=== PATIENT | female | born 1970 | race Caucasian/White ===

== ENCOUNTER 2018-01-27 15:55 | Emergency (ER) | payer OTHER ==
[~2018-01-27] VITALS: Ht 160 cm; Wt 100.0 kg
[~2018-01-27 15:55] MED LIST: CELE50CA PO; ROBA750T PO; TYLETAB34 PO
[2018-01-27 16:17] VITALS: BP 184/82; PULSE 71; RESP 18; TEMP 98; O2SAT 97
[2018-01-27] MEDS ORDERED: ATEN25TA PO (16:24)
[2018-01-27] MEDS ORDERED: DIOV80TA4 PO (16:24)
[2018-01-27] MEDS ORDERED: FISH1000 PO (16:24)
[2018-01-27] MEDS ORDERED: insulin pump SQ (16:24)
[2018-01-27] MEDS ORDERED: ASPI-516 CHEW (16:24)
--- NOTE | 2018-01-27 16:57 | PD ---
HPI Chief Complaint: Chest Pain Time Seen by Provider: 16:37 Travel History International Travel<30 days: No Contact w/Intl Traveler<30days: No Traveled to known affect area: No History of Present Illness HPI 47-year-old type I diabetic female presents emergency department complaining of chest pain with associated shortness of breath that started last night. Says she developed what she thought was reflux type symptoms so she decided to take her ranitidine and aspirin. Says she had a mild decrease in her symptoms but woke up this morning continue to have symptoms. Patient states that she was shopping when her pain increased and she was unable to walk without significant shortness of breath. Her pain is located in the midsternal region described as "pressure", nonradiating, mild to moderate nature. Since he has similar episode previously but was not to this extent. Says it was caused by anxiety and stress but does not feel stressed at this point. She denies fever, chills, nausea, vomiting. Denies any history of clots, recent extensive travel, surgeries or fractures. Says she had a colonoscopy about 2 weeks ago where polyps were found. She is a past medical history of diabetes, hypertension, hyperlipidemia. Patient denies tobacco or alcohol use. Says she had a stress test in 2016 which was "normal". She denies any other cardiac, pulmonary, or kidney issues. Says she was placed on oxygen once in the room and feels much better but still has pressure and feels slightly short of breath. Says she had a CT abdomen pelvis with contrast yesterday to evaluate for her chronic stomach issues. She was unable to specify what these were. Says she has had chronic abdominal pain. PFSH Past Medical History Cardiovascular Problems: Yes Diabetes: Yes Patient Takes Glucophage: No Diminished Hearing: Yes (hearing aides) GERD: Yes Hypertension: Yes ?: Not Menopausal: Yes Dilation and Curettage (D&C): Yes Past Surgical History Surgical History: No Previous Surgery Insulin Pump: Yes Social History Alcohol Use: No Tobacco Use: No Substance Use: No Allergies-Medications (Allergen,Severity, Reaction): Coded Allergies: No Known Allergies (Unverified , 06/15/17) Reported Meds & Prescriptions Reported Meds & Active Scripts Active Reported [insulin pump] SQ CONTINUOUS Fish Oil (Patterson-3 Fatty Acids) 340 Mg-1,000 Mg Cap PO DAILY Diovan (Valsartan) 80 Mg Tab 80 Mg PO DAILY Aspirin 81 Mg Chew 81 Mg CHEW DAILY Atenolol 25 Mg Tab 25 Mg PO DAILY Review of Systems Except as stated in HPI: all other systems reviewed are Neg Physical Exam Narrative GENERAL: Well-developed, well-nourished in no apparent distress SKIN: Focused skin assessment warm/dry. HEAD: Atraumatic. Normocephalic. EYES: Pupils equal and round. No scleral icterus. No injection or drainage. ENT: No nasal bleeding or discharge. Mucous membranes pink and moist. NECK: Trachea midline. No JVD. CARDIOVASCULAR: Regular rate and rhythm. No murmur appreciated. RESPIRATORY: No accessory muscle use. Clear to auscultation. Breath sounds equal bilaterally. GASTROINTESTINAL: Abdomen soft, non-tender, nondistended. No CVA tenderness MUSCULOSKELETAL: No obvious deformities. No clubbing. No cyanosis. No edema. Tenderness palpation of the chest wall. Homans sign negative bilaterally NEUROLOGICAL: Awake and alert. No obvious cranial nerve deficits. Motor grossly within normal limits. Normal speech. PSYCHIATRIC: Appropriate mood and affect; insight and judgment normal. Data Data Last Documented VS Vital Signs Date Time Temp Pulse Resp B/P (MAP) Pulse Ox O2 Delivery O2 Flow Rate FiO2 01/27/18 17:02 98 Nasal Cannula 2.00 01/27/18 16:20 73 16 01/27/18 16:17 98.0 184/82 (116) Orders Orders Electrocardiogram (01/27/18 16:51) Ckmb (Isoenzyme) Profile (01/27/18 16:51) Complete Blood Count With Diff (01/27/18 16:51) Comprehensive Metabolic Panel (01/27/18 16:51) Magnesium (Mg) (01/27/18 16:51) Prothrombin Time / Inr (Pt) (01/27/18 16:51) Act Partial Throm Time (Ptt) (01/27/18 16:51) Troponin I (01/27/18 16:51) Lipase (01/27/18 16:51) Chest, Single Ap (01/27/18 16:51) Ecg Monitoring (01/27/18 16:51) Iv Access Insert/Monitor (01/27/18 16:51) Oximetry (01/27/18 16:51) Oxygen Administration (01/27/18 16:51) Sodium Chloride 0.9% Flush (Ns Flush) (01/27/18 17:00) D-Dimer (01/27/18 17:18) Ventilation & Perfusion Scan (01/27/18 ) CKMB (01/27/18 17:04) CKMB% (01/27/18 17:04) Ed Discharge Order (01/27/18 19:57) Labs Laboratory Tests Test 01/27/18 17:04 White Blood Count 8.7 TH/MM3 Red Blood Count 4.42 MIL/MM3 Hemoglobin 12.9 GM/DL Hematocrit 38.0 % Mean Corpuscular Volume 86.0 FL Mean Corpuscular Hemoglobin 29.3 PG Mean Corpuscular Hemoglobin Concent 34.0 % Red Cell Distribution Width 14.3 % Platelet Count 141 TH/MM3 Mean Platelet Volume 11.5 FL Neutrophils (%) (Auto) 63.1 % Lymphocytes (%) (Auto) 28.2 % Monocytes (%) (Auto) 5.4 % Eosinophils (%) (Auto) 2.4 % Basophils (%) (Auto) 0.9 % Neutrophils # (Auto) 5.5 TH/MM3 Lymphocytes # (Auto) 2.4 TH/MM3 Monocytes # (Auto) 0.5 TH/MM3 Eosinophils # (Auto) 0.2 TH/MM3 Basophils # (Auto) 0.1 TH/MM3 CBC Comment DIFF FINAL Differential Comment Prothrombin Time 9.9 SEC Prothromb Time International Ratio 1.0 RATIO Activated Partial Thromboplast Time 22.9 SEC D-Dimer Quantitative (PE/DVT) 0.76 MG/L FEU Blood Urea Nitrogen 8 MG/DL Creatinine 1.01 MG/DL Random Glucose 267 MG/DL Total Protein 8.1 GM/DL Albumin 3.3 GM/DL Calcium Level 8.7 MG/DL Magnesium Level 1.9 MG/DL Alkaline Phosphatase 91 U/L Aspartate Amino Transf (AST/SGOT) 17 U/L Alanine Aminotransferase (ALT/SGPT) 21 U/L Total Bilirubin 0.5 MG/DL Sodium Level 138 MEQ/L Potassium Level 3.8 MEQ/L Chloride Level 103 MEQ/L Carbon Dioxide Level 25.7 MEQ/L Anion Gap 9 MEQ/L Estimat Glomerular Filtration Rate 59 ML/MIN Total Creatine Kinase 106 U/L Creatine Kinase MB 0.8 NG/ML Troponin I LESS THAN 0.02 NG/ML Lipase 92 U/L [facility] Medical Decision Making Medical Screen Exam Complete: Yes Emergency Medical Condition: Yes Differential Diagnosis PE, NSTEMI, angina, GERD Narrative Course 47-year-old type I diabetic female presents emergency department complaining of chest pain with associated shortness of breath that started last night. Says she developed what she thought was reflux type symptoms so she decided to take her ranitidine and aspirin. Says she had a mild decrease in her symptoms but woke up this morning continue to have symptoms. Patient states that she was shopping when her pain increased and she was unable to walk without significant shortness of breath. Her pain is located in the midsternal region described as "pressure", nonradiating, mild to moderate nature. Since he has similar episode previously but was not to this extent. Says it was caused by anxiety and stress but does not feel stressed at this point. She denies fever, chills, nausea, vomiting. Denies any history of clots, recent extensive travel, surgeries or fractures. Says she had a colonoscopy about 2 weeks ago where polyps were found. She is a past medical history of diabetes, hypertension, hyperlipidemia. Patient denies tobacco or alcohol use. Says she had a stress test in 2016 which was "normal". She denies any other cardiac, pulmonary, or kidney issues. Says she was placed on oxygen once in the room and feels much better but still has pressure and feels slightly short of breath. Says she had a CT abdomen pelvis with contrast yesterday to evaluate for her chronic stomach issues. She was unable to specify what these were. Says she has had chronic abdominal pain. Vital signs are stable. Physical exam findings consistent with a 47-year-old female well-developed, well -nourished obese in no acute distress. Upon my evaluation she has 2 L/m nasal cannula being administered and is rather calm. Labs and imaging studies ordered. VQ scan ordered as she had a CT abdomen and pelvis with IV contrast yesterday. CBC & BMP Diagram 01/27/18 17:04 Total Protein 8.1, Albumin 3.3 L, Calcium Level 8.7, Magnesium Level 1.9, Alkaline Phosphatase 91, Aspartate Amino Transf (AST/SGOT) 17, Alanine Aminotransferase (ALT/SGPT) 21, Total Bilirubin 0.[address] scan states "marked and homogenous ventilation. Homogenous perfusion. Low probability for pulmonary embolism. Because of patient's history and physical and risk factors I advised the patient stay in our chest pain center for further evaluation. I discussed thoroughly the importance of further evaluation and patient was rather insistent on going home. Advised the risk versus benefits up to including . States that if she feels worse she will go to the hospital closer to her home. I advised the patient that she could change her mind at any point and return to the emergency department further evaluation. I strongly advised her to follow- up with a screen printing paster. She states understanding and will comply. Patient will leave AGAINST MEDICAL ADVICE. AMA: The risks of leaving against medical advice without further evaluation treatment were discussed with the patient. These risks include cardiac dysfunction, cardiac dysrhythmia, possible heart attack, possible stroke or . The patient indicated understanding of these risks and appeared to have the capacity to make this decision. Diagnosis Primary Impression: Chest pain, atypical Referrals: [facility] Additional Instructions: Follow up with your Primary care physician and cardiology FELICIA. If your symptoms persists or worsens, return to the ED for further eval. You may return at any point to the ED for evaluation. Disposition: 07 AGAINST MEDICAL ADVICE Condition: Stable Darcy Dong Jan 27, 2018 16:57
[2018-01-27] MEDS ORDERED: SODIUM CHLORIDE 0.9% FLUSH 10 ML FLUSH IVF PRN (17:00)
[2018-01-27 17:02] VITALS: O2SAT 98
[2018-01-27 17:29] LABS: AUTOMATED NEUTROPHIL # 5.5 TH/MM3 (1.8-7.7); BASOPHIL # 0.1 TH/MM3 (0-0.2); BASOPHIL % 0.9 % (0.0-2.0); EOSINOPHIL # 0.2 TH/MM3 (0-0.4); EOSINOPHIL % 2.4 % (0.0-4.0); HEMOGLOBIN 12.9 GM/DL (11.6-15.3); LYMPH % 28.2 % (9.0-44.0); LYMPHOCYTE # 2.4 TH/MM3 (1.0-4.8); MEAN CORPUSCULAR HEMOGLOBIN 29.3 PG (27.0-34.0); MEAN PLATELET VOLUME 11.5 FL (7.0-11.0); MONO % 5.4 % (0.0-8.0); MONOCYTE # 0.5 TH/MM3 (0-0.9); NEUT % 63.1 % (16.0-70.0); PLATELET COUNT 141 TH/MM3 (150-450); RED BLOOD COUNT 4.42 MIL/MM3 (4.00-5.30); RED CELL DISTRIBUTION WIDTH 14.3 % (11.6-17.2); WHITE BLOOD COUNT 8.7 TH/MM3 (4.0-11.0)
[2018-01-27 17:38] LABS: PROTHROMBIN TIME - PATIENT 9.9 SEC (9.8-11.6)
--- NOTE | 2018-01-27 17:45 | RADRPT ---
EXAM DATE/TIME: 01/27/2018 17:05 [facility] COMPARISON: No previous studies available for comparison. INDICATIONS : Midchest pain. Shortness of breath. MEDICAL HISTORY : Hypertension. Diabetes. SURGICAL HISTORY : None. ENCOUNTER: Initial ACUITY: 1 day PAIN SCORE: 7/10 LOCATION: Bilateral chest FINDINGS: A single view of the chest demonstrates the lungs to be symmetrically aerated without evidence of mas s, infiltrate or effusion. The cardiomediastinal contours are unremarkable. Osseous structures are intact. CONCLUSION: No acute disease. Milton Quispe MD FACR on January 27, 2018 at 17:42 Board Certified Radiologist. This report was verified electronically.
[2018-01-27 17:50] LABS: ALT (GPT) 21 U/L (10-53)
[2018-01-27 17:54] LABS: ALKALINE PHOSPHATASE 91 U/L (45-117); TOTAL BILIRUBIN ADULT 0.5 MG/DL (0.2-1.0); TOTAL PROTEIN 8.1 GM/DL (6.4-8.2); TROPONIN I LESS THAN 0.02 NG/ML (0.02-0.05)
[2018-01-27 17:55] LABS: ALBUMIN 3.3 GM/DL (3.4-5.0); AST (GOT) 17 U/L (15-37); BICARBONATE 25.7 MEQ/L (21.0-32.0); BLOOD UREA NITROGEN 8 MG/DL (7-18); CALCIUM 8.7 MG/DL (8.5-10.1); CHLORIDE 103 MEQ/L (98-107); CREATININE 1.01 MG/DL (0.50-1.00); GLOMERULAR FILTRATION RATE 59 ML/MIN (>89); GLUCOSE,RANDOM 267 MG/DL (74-106); MAGNESIUM 1.9 MG/DL (1.5-2.5); SODIUM (NA) 138 MEQ/L (136-145)
--- NOTE | 2018-01-27 19:10 | RADRPT ---
EXAM DATE/TIME: 01/27/2018 18:20 [facility] COMPARISON: No previous studies available for comparison. INDICATIONS : Shortness of breath for one day. DOSE: 8.8 mCi Tc99m MAA IV 0.68 mCi Tc99m DTPA aerosol MEDICAL HISTORY : Diabetes mellitus type 2. Hypertension. SURGICAL HISTORY : None. ENCOUNTER: Initial ACUITY: 1 day PAIN SCALE: 0/10 LOCATION: chest TECHNIQUE: Following five minutes of tidal breathing of DTPA aerosol, planar images of the lungs were performed in eight projections. The patient was then injected with MAA, and eight-view perfusion scan was perf ormed. FINDINGS: Aerosol scan shows marked inhomogeneous. The perfusion lung scan demonstrates a homogenous pattern of uptake in both lungs. No segmental or s ubsegmental defects are seen. CONCLUSION: Marked inhomogeneous ventilation. Homogeneous perfusion Low probability for pulmonary embolism Milton Quispe MD FACR on January 27, 2018 at 19:07 Board Certified Radiologist. This report was verified electronically.
--- NOTE | 2018-01-27 19:18 | PD ---
Physical Exam Date Seen by Provider: Jan 27, 2018 Time Seen by Provider: 18:00 Narrative I, Dr. Lyons, have reviewed the advance practice practitioner's documentation and am in agreement, met with the patient face to face, made the diagnosis, and the medical decision making was done by me. *My assessment and Findings: Patient is seen and evaluated with PA, please see PA note for further details. She is here with chest discomfort and shortness of breath, has family history of pulmonary embolism and DVTs. She denies any recent trips, OCPs, no recent surgeries. Exam was fairly unremarkable. Pulmonary and cardiac exam was unremarkable as well. EKG shows NSR, no ST elevation or depression, and no arrhythmias. No significant T-wave inversions. Laboratory Tests Test 01/27/18 17:04 Platelet Count 141 TH/MM3 (150-450) Mean Platelet Volume 11.5 FL (7.0-11.0) Activated Partial Thromboplast Time 22.9 SEC (24.3-30.1) D-Dimer Quantitative (PE/DVT) 0.76 MG/L FEU (0.00-0.50) Creatinine 1.01 MG/DL (0.50-1.00) Random Glucose 267 MG/DL (74-106) Albumin 3.3 GM/DL (3.4-5.0) Estimat Glomerular Filtration Rate 59 ML/MIN (>89) Troponin I LESS THAN 0.02 NG/ML Chest x-ray and VQ scan were negative for any signs of acute pulmonary processes. Cardiac enzymes are negative. Data Data Last Documented VS Vital Signs Date Time Temp Pulse Resp B/P (MAP) Pulse Ox O2 Delivery O2 Flow Rate FiO2 01/27/18 17:02 98 Nasal Cannula 2.00 01/27/18 16:20 73 16 01/27/18 16:17 98.0 184/82 (116) Orders Orders Electrocardiogram (01/27/18 16:51) Ckmb (Isoenzyme) Profile (01/27/18 16:51) Complete Blood Count With Diff (01/27/18 16:51) Comprehensive Metabolic Panel (01/27/18 16:51) Magnesium (Mg) (01/27/18 16:51) Prothrombin Time / Inr (Pt) (01/27/18 16:51) Act Partial Throm Time (Ptt) (01/27/18 16:51) Troponin I (01/27/18 16:51) Lipase (01/27/18 16:51) Chest, Single Ap (01/27/18 16:51) Ecg Monitoring (01/27/18 16:51) Iv Access Insert/Monitor (01/27/18 16:51) Oximetry (01/27/18 16:51) Oxygen Administration (01/27/18 16:51) Sodium Chloride 0.9% Flush (Ns Flush) (01/27/18 17:00) D-Dimer (01/27/18 17:18) Ventilation & Perfusion Scan (01/27/18 ) CKMB (01/27/18 17:04) CKMB% (01/27/18 17:04) Labs Laboratory Tests Test 01/27/18 17:04 White Blood Count 8.7 TH/MM3 Red Blood Count 4.42 MIL/MM3 Hemoglobin 12.9 GM/DL Hematocrit 38.0 % Mean Corpuscular Volume 86.0 FL Mean Corpuscular Hemoglobin 29.3 PG Mean Corpuscular Hemoglobin Concent 34.0 % Red Cell Distribution Width 14.3 % Platelet Count 141 TH/MM3 Mean Platelet Volume 11.5 FL Neutrophils (%) (Auto) 63.1 % Lymphocytes (%) (Auto) 28.2 % Monocytes (%) (Auto) 5.4 % Eosinophils (%) (Auto) 2.4 % Basophils (%) (Auto) 0.9 % Neutrophils # (Auto) 5.5 TH/MM3 Lymphocytes # (Auto) 2.4 TH/MM3 Monocytes # (Auto) 0.5 TH/MM3 Eosinophils # (Auto) 0.2 TH/MM3 Basophils # (Auto) 0.1 TH/MM3 CBC Comment DIFF FINAL Differential Comment Prothrombin Time 9.9 SEC Prothromb Time International Ratio 1.0 RATIO Activated Partial Thromboplast Time 22.9 SEC D-Dimer Quantitative (PE/DVT) 0.76 MG/L FEU Blood Urea Nitrogen 8 MG/DL Creatinine 1.01 MG/DL Random Glucose 267 MG/DL Total Protein 8.1 GM/DL Albumin 3.3 GM/DL Calcium Level 8.7 MG/DL Magnesium Level 1.9 MG/DL Alkaline Phosphatase 91 U/L Aspartate Amino Transf (AST/SGOT) 17 U/L Alanine Aminotransferase (ALT/SGPT) 21 U/L Total Bilirubin 0.5 MG/DL Sodium Level 138 MEQ/L Potassium Level 3.8 MEQ/L Chloride Level 103 MEQ/L Carbon Dioxide Level 25.7 MEQ/L Anion Gap 9 MEQ/L Estimat Glomerular Filtration Rate 59 ML/MIN Total Creatine Kinase 106 U/L Creatine Kinase MB 0.8 NG/ML Troponin I LESS THAN 0.02 NG/ML Lipase 92 U/L [facility] Medical Record Reviewed: Yes Supervised Visit with CHLOÉ: Yes Diagnosis Primary Impression: Chest pain, atypical Condition: Stable Johnny Lyons MD Jan 27, 2018 19:18
--- NOTE | 2018-01-28 19:39 | EKG ---
Date Performed: 01/27/2018 Time Performed: 16:13:53 PTAGE: 47 years EKG: Sinus rhythm Since the previous tracing, no significant change noted NORMAL ECG NO PREVIOUS TRACING DOCTOR: Toño Varghese Interpretating Date/Time 01/28/2018 19:38:44
== END 2018-01-27 19:50 | disposition left against medical advice (07) ==
LOC: NEPC 15:55
DX: R07.89 Other chest pain (principal); R06.02 Shortness of breath; I10 Essential (primary) hypertension; E11.9 Type 2 diabetes mellitus without complications; Z82.49 Family history of ischemic heart disease and other diseases of the circulatory system; Z79.4 Long term (current) use of insulin; Z79.899 Other long term (current) drug therapy
CPT/HCPCS: 71045; 78582; 80053; 82550; 82552; 83690; 83735; 84484; 85025; 85379; 85610; 85730; 93005; 99285; A9540; A9567